=== PATIENT | female | born 1970 | race Caucasian/White ===

== ENCOUNTER → 2021-12-05 | Outpatient (CLI) | payer OTHER | LOC: MRI 13:09 | DX: D32.9 Benign neoplasm of meninges, unspecified (principal) | CPT/HCPCS: 70553; A9577 ==

== ENCOUNTER → 2022-05-05 | Outpatient (CLI) | payer OTHER | LOC: CATH 09:38 | DX: I95.1 Orthostatic hypotension (principal) ==